=== PATIENT | female | born 1940 | race Caucasian/White ===

== ENCOUNTER → 2017-02-16 | Outpatient (CLI) | payer MEDICARE, OTHER ==
[2015-09-09 17:02] VITALS: BP 129/59
--- NOTE | 2017-02-16 11:34 | RAD ---
PROCEDURE MRI lumbar spine without contrast. HISTORY Low back pain with left leg radiculopathy, history of discectomy TECHNIQUE Multiplanar, multi sequential non contrast MR imaging was performed of the lumbar spine. COMPARISON None FINDINGS Lumbar vertebral body stature is maintained. There is grade 1 anterior spondylolisthesis at L3-4 and L4-5. Conus terminates at L1. There is fairly advanced degenerative disc disease at L3-4, to a lesser degree at L2-3 and minimally at L4-5. There are small hemangiomas of the L1, L3, and L5 vertebral bodies. There is mild levoscoliosis centered upon the superior lumbar spine. T12-L1: There is a large extradural focus of signal abnormality extending above the intervertebral disc space greatest centrally most compatible with a large extrusion on the order of 19 millimeters cc by 7 millimeters AP x 10 millimeters transverse. There is indentation upon the ventral thecal sac, overall mild spinal stenosis. Neural foramina are adequate. There is mild to moderate buckling of the ligamentum flavum. L1-2: There is mild to moderate buckling of the ligamentum flavum. There is mild facet degenerative change. Spinal canal is overall adequate. Left neural foramen is adequate, minimal narrowing of the right neural foramen. L2-3: There is moderate to severe buckling of the ligamentum flavum and mild to moderate facet degenerative change. There is minimal disc osteophyte complex. There is minimal narrowing of the right neural foramen, ixxw-mr-eabgeaid narrowing on the left. There is mild narrowing of the far lateral recesses bilaterally. L3-4: There is severe facet hypertrophic change and buckling of the ligamentum flavum. There is partial uncovering of the posterior aspect of the disc due to spondylolisthesis. Combination of findings results in severe spinal stenosis, limited preserved central subarachnoid space. There is lateral recess stenosis bilaterally. There is mild to moderate right and severe left neural foramina compromise. L4-5: There is moderate to severe facet degenerative change and mild buckling of the ligamentum flavum. Spinal canal is adequate. There is minimal posterior narrowing of the left neural foramen, right neural foramen adequate. L5-S1: Spinal canal and neural foramina are adequate. IMPRESSION 1. There is severe spinal stenosis L3-4. There is mild lateral recess stenosis bilaterally at L2-3. There is mild spinal stenosis at and above the T12-L1 intervertebral disc space level by large extrusion. 2. There is grade 1 anterior spondylolisthesis at L3-4 and L4-5. 3. There is severe narrowing of the left L3-4 neural foramen, other mild to moderate narrowing on the left at L2-3 and on the right at L3-4. Electronically signed by: Edilberto Holman MD (Feb 16, 2017 11:33:38)
== END | disposition home or self-care (01) ==
LOC: MRI 09:46
PROVIDERS: ATTEND Orthopaedic Surgery Sports Medicine
DX: M51.36 Other intervertebral disc degeneration, lumbar region (principal); M48.06 Spinal stenosis, lumbar region; M43.16 Spondylolisthesis, lumbar region
CPT/HCPCS: 72148

== ENCOUNTER → 2018-05-03 | Outpatient (CLI) | payer OTHER | END | disposition home or self-care (01) | LOC: ECHO 10:45 | DX: I08.2 Rheumatic disorders of both aortic and tricuspid valves (principal) | CPT/HCPCS: 93306 ==

== ENCOUNTER → 2019-03-14 | Outpatient (CLI) | payer OTHER ==
[2015-09-09 17:02] VITALS: BP 129/59
[~2019-03-14] MED LIST: REGADENOSON 0.4 MG/5 ML DISP.SYRIN. IV ONE
--- NOTE | 2019-03-14 12:24 | RAD ---
MR#: [id number] Date of Study: 03/14/2019 Ordering Physician: AKOSUA ALEXIS, Referring Physician: NATE BEAR Tech: LIZ Bolivar, ARRT (R) (N) APPROVED REPORT Test Type: Pharmacological Stress Nurse/Tech: Darin SWANN Test Indications: chest pain Cardiac History: Murmur, HTN, See EMR Medications: See EMR Medical History: CVA, See EMR Resting ECG: SR Resting Heart Rate: 75 bpm Resting Blood Pressure: 131/56mmHg Pretest Chest Pain: No chest pain Nurse/Tech Notes Lungs CTA, Murmur auscultated with heart tones. Consent: The procedure was explained to the patient in lay terms. Informed consent was witnessed. Fran eout was entered into [employer]. History and Stress Test performed by RT Ajay (R) (N) Pharm. Details Pharmacologic stress testing was performed using 0.4mg per 5ml of regadenoson given intravenously ove r 7-10 seconds. Stress Symptoms No chest pain or symptoms. POST EXERCISE Reason for Termination: Infusion complete Max HR: 89 bpm Max Blood Pressure: 152/53mmHg Chest Pain: No. Arrhythmia: No. Pt had a few PVCs during stress test. ST Change: No. INTERPRETATION Stress EKG Conclusion: The resting EKG shows a sinus rhythm with nonspecific ST-T wave changes. The stress EKG showed no significant changes from baseline. No EKG evidence of stress-induced ischemia. Imaging Protocol IMAGE PROTOCOL: Rest Tc-99m/stress Tc-99m 1 day Rest: Stress: Viability: Radiopharm.Tc99m HmmkwlqncWf86u Sestamibi Mjkd88hWa 33mCi Img Date 03/14/2019 03/14/2019 Inj-Img Ivlt21yoe. 45min. Rest Admin Site:IV - Left WristAdministrator:CAROLYN Saravia Stress Admin Site: IV - Left WristAdministrator: RT Alexandre (R)(N) STRESS DATA End Diast. Vol.52.0mlLVEDV index BSA30.0ml End Syst. Vol.7.0mlLVESV index BSA4.0ml Myocardial Mass96.0gEject. Kyhjjvwc47.0% Stress Scores Regional WT0.00Summed WT0.00 Regional WM0.00Summed WM0.00 LV Perfusion The stress scans showed no significant defects. The rest scans showed no significant defects. Nuclear imaging shows no reversible ischemia or infarct. Wall Motion Normal left ventricular systolic function with no regional wall motion abnormalities and an ejection fraction of greater than 70%. LV Perf. Quant 17 Seg. SSS0.00 17 Seg. SRS0.00 17 Seg. SDS0.00 Stress Defect Extent (% LAD)0.00Rest Defect Extent (% LAD)0.00Rev. Defect Extent (% LAD)0.00 Stress Defect Extent (% LCX) 0.00Rest Defect Extent (% LCX)0.00Rev. Defect Extent (% LCX)0.00 Stress Defect Extent (% RCA)0.00Rest Defect Extent (% RCA)0.00Rev. Defect Extent (% RCA)0.00 Stress Defect Extent (% MAGDA)0.00Rest Defect Extent (% MAGDA)0.00Rev. Defect Extent (% MAGDA)0.00 Conclusion 1. No EKG evidence of stress-induced ischemia. 2. Nuclear imaging shows no reversible ischemia or infarct. 3. Normal left ventricular systolic function with ejection fraction of greater than 70%. 4. Low risk Lexiscan nuclear stress test. Signed by : Akosua Alexis MD Electronically Approved : 03/14/2019 12:23:53
--- NOTE | 2019-03-14 12:29 | CARD ---
MR#: [id number] Date of Study: 03/14/2019 Ordering Physician: AKOSUA ALEXIS, Referring Physician: AKOSUA ALEXIS, Tech: Savi Knox APPROVED REPORT EXAM: Two-dimensional and M-mode echocardiogram with Doppler and color Doppler. Other Information Quality : GoodHR: 73bpm INDICATION Dyspnea Murmur RISK FACTORS Hypertension Hyperlipidemia 2D DIMENSIONS RVDd3.6 (2.9-3.5cm)Left Atrium(2D)3.3 (1.6-4.0cm) IVSd1.2 (0.7-1.1cm)Aortic Root(2D)3.1 (2.0-3.7cm) LVDd4.5 (3.9-5.9cm)LVOT Diameter2.1 (1.8-2.4cm) PWd1.1 (0.7-1.1cm)LVDs3.3 (2.5-4.0cm) FS (%) 26.8 %SV49.5 ml Aortic Valve AoV Peak Zurdo.264.7cm/sAoV VTI62.3cm AO Peak GR.28.0mmHgLVOT Peak Zurdo.123.4cm/s LVOT VTI 32.85cmAO Mean GR.15mmHg AQUILES (VMAX)1.24dz6USW (VTI)1.79cm2 AI P 1/2 Mkdv814ke Mitral Valve MV E Qcrowold448.4cm/sMV DECEL NODI734cz MV A Ihbxorjw880.4cm/sMV RTX00bn E/A Ratio1.0MVA (PHT)3.09cm2 TDI E/Lateral E'16.5E/Medial E'11.8 Pulmonary Valve PV Peak Xgrwdqzm91.8cm/sPV Peak Grad.4mmHg Tricuspid Valve TR P. Cacdbmnm838bt/sRAP ZDPUFSSG4nyBm TR Peak Gr.52flTtPETI78baOv Pulmonary Vein S1 Jibtbxfa19.3cm/sD2 Suirnjju80.9cm/s PVa mwlqmgzj938qplt LEFT VENTRICLE The left ventricle is normal size. There is mild concentric left ventricular hypertrophy. The left ve ntricular systolic function is normal and the ejection fraction is within normal range. The Ejection Fraction is 50-55%. There is normal LV segmental wall motion. Transmitral Doppler flow pattern is Gra de II-pseudonormal filling dynamics. RIGHT VENTRICLE The right ventricle is normal size. There is normal right ventricular wall thickness. The right ventr icular systolic function is normal. ATRIA The left atrium size is normal. The right atrium size is normal. The interatrial septum is intact wit h no evidence for an atrial septal defect or patent foramen ovale as noted on 2-D or Doppler imaging. AORTIC VALVE The aortic valve is moderately calcified. Doppler and Color Flow revealed mild aortic regurgitation. Mild to moderate aortic valve stenosis. Aortic valve with a maximum pressure gradient of 28 mmHg and mean pressure gradient of 16 mmHg. MITRAL VALVE The mitral valve is normal in structure and function. Mitral annular calcification is moderate. There is no evidence of mitral valve prolapse. There is no mitral valve stenosis. Doppler and Color-flow r evealed mild mitral regurgitation. TRICUSPID VALVE The tricuspid valve is normal in structure and function. Doppler and Color Flow revealed trace to mil d tricuspid regurgitation with an estimated PAP of 34 mmHg. There is no tricuspid valve stenosis. PULMONIC VALVE The pulmonic valve is not well visualized. Doppler and Color Flow revealed no pulmonic valvular regur gitation. GREAT VESSELS The aortic root is normal in size. The IVC is dilated and collapses >50% with inspiration. PERICARDIAL EFFUSION There is no evidence of significant pericardial effusion. Critical Notification Critical Value: No <Conclusion> The left ventricle is normal size. The left ventricular systolic function is normal and the ejection fraction is within normal range. The Ejection Fraction is 50-55%. There is mild concentric left ventricular hypertrophy. Mild to moderate aortic valve stenosis. Aortic valve with a maximum pressure gradient of 28 mmHg and mean pressure gradient of 16 mmHg. Doppler and Color Flow revealed mild aortic regurgitation. Doppler and Color-flow revealed mild mitral regurgitation. Doppler and Color Flow revealed trace to mild tricuspid regurgitation with an estimated PAP of 34 mmH g. Signed by : Akosua Alexis MD Electronically Approved : 03/14/2019 12:28:46
== END | disposition home or self-care (01) ==
LOC: NM 08:31
PROVIDERS: ATTEND Internal Medicine Cardiovascular Disease
DX: I08.3 Combined rheumatic disorders of mitral, aortic and tricuspid valves (principal); I11.9 Hypertensive heart disease without heart failure; E78.5 Hyperlipidemia, unspecified
CPT/HCPCS: 78452; 93017; 93306; A9500; J2785

== ENCOUNTER 2020-05-31 16:36 | Inpatient (IN) | payer MEDICARE, OTHER ==
[~2020-05-31] VITALS: Ht 160 cm; Wt 67.8 kg
--- NOTE | 2020-05-31 17:05 | PHYS DOC ---
Past Medical History Past Medical History: CVA, Hypertension Past Surgical History: Hip Replacement, Hysterectomy, Lumbar Laminectomy Smoking Status: Never Smoker Alcohol Use: None Drug Use: None General Adult EDM: Chief Complaint: ALTERED MENTAL STATUS HPI: HPI: Patient is a 79 year old female who presents with daughter brings her in today because she states over the last 2 months she has noticed a decline in her mother's memory. She states she repeats things and will call and then call again not remembering that she just called and talk to them. She states that her short-term memory has declined. She states that her mother can tell you her life story but the short-term memory is not good. Patient states that approximately 2 months ago that her head felt "very funny" suddenly. She states she does not know how to explain it but just felt " funny". She states after that that is when her family started saying that her memory declining. The daughter states that also she will have a emotional outburst. She states that today her mother stated that she was going to go to the store and buy some protein bars to eat. She states that almost immediately after she hung up the phone her mother called back and was in tears stating " it is too hot", "I am not going". She states the other day she could not get the TV remote to work and her mother called her crying again. She states in the last 2 weeks she is just gotten away worse than she has been over the last 2 months and she does not understand why. The patient states that she thinks "it is just old age and she does not see anything wrong with the way she is acting." Patient denies abdominal pain, nausea, vomiting, diarrhea, dizziness, headache, vision changes, numbness or tingling, chest pain, shortness of breath, focal weakness, dysuria, fever, cough. Patient has a history of a CVA with no deficits and a hysterectomy and hypertension. Review of Systems: Review of Systems: Constitutional: Denies fever or chills. [] Eyes: Denies change in visual acuity. [] HENT: Denies nasal congestion or sore throat. [] Respiratory: Denies cough or shortness of breath. [] Cardiovascular: Denies chest pain or edema. [] GI: Denies abdominal pain, nausea, vomiting, bloody stools or diarrhea. [] : Denies dysuria. [] Musculoskeletal: Denies back pain or joint pain. [] Integument: Denies rash. [] Neurologic: Forgetfulness. Denies headache, focal weakness or sensory changes. [] Endocrine: Denies polyuria or polydipsia. [] Lymphatic: Denies swollen glands. [] Psychiatric: Denies depression or anxiety. [] Heart Score: Risk Factors: Risk Factors: DM, Current or recent (<one month) smoker, HTN, HLP, family history of CAD, obesity. Risk Scores: Score 0 - 3: 2.5% MACE over next 6 weeks - Discharge Home Score 4 - 6: 20.3% MACE over next 6 weeks - Admit for Clinical Observation Score 7 - 10: 72.7% MACE over next 6 weeks - Early Invasive Strategies Allergies: Allergies: Allergies Coded Allergies Type Severity Reaction Last Updated Verified No Known Drug Allergies 09/09/15 No Physical Exam: PE: Constitutional: Well developed, well nourished, no acute distress, non-toxic appearance. [] HENT: Normocephalic, atraumatic, bilateral external ears normal, oropharynx moist, no oral exudates, nose normal. [] Eyes: PERRLA, EOMI, conjunctiva normal, no discharge. [] Neck: Normal range of motion, no tenderness, supple, no stridor. [] Cardiovascular:Heart rate regular rhythm, no murmur [] Lungs & Thorax: Bilateral breath sounds clear to auscultation [] Abdomen: Bowel sounds normal, soft, no tenderness, no masses, no pulsatile masses. [] Skin: Warm, dry, no erythema, no rash. [] Back: No tenderness, no CVA tenderness. [] Extremities: No tenderness, no cyanosis, no clubbing, ROM intact, bilateral lower 1+ edema. [] Neurologic: Alert and oriented X 3, normal motor function, normal sensory function, no focal deficits noted. [] Psychologic: Affect normal, judgement normal, mood normal. EKG: EK and read by Dr. Carias is sinus rhythm and no STEMI Radiology/Procedures: Radiology/Procedures: [] Impression: [facility] [address] [place] [address] IMAGING REPORT Signed PATIENT: EDGAR JAEGER EACCOUNT: [id number] : 1940 LOCATION: ER AGE: 79 SEX: F EXAM STATUS: PRE ER ORD. PHYSICIAN: GABINO MANRIQUE APRN REASON: ams PROCEDURE: CT HEAD WO CONTRAST Exam: CT head INDICATION: Altered mental status TECHNIQUE: Sequential axial images through the head were obtained without the administration of IV contrast. Comparisons: None FINDINGS: No focal parenchymal lesion or hemorrhage is identified. There is no midline shift or sulcal effacement. Chronic appearing infarct at the left medial cerebellum. Patchy hypodensity in the periventricular white matter. No acute vascular territory infarction is identified. Chaparro-white distinction is preserved. The ventricular system is within normal limits without compression hydrocephalus. The basal cisterns are well maintained. The visualized portions of the paranasal sinuses and mastoid air cells are well-pneumatized. No acute fractures. IMPRESSION: Chronic appearing infarct in the left medial cerebellum patchy hypodensity in the periventricular white matter, technically age indeterminate without prior imaging. If there is persistent concerns for acute ischemia MRI would better evaluate. Exposure: One or more of the following in the visualized dose reduction techniques were utilized for this examination: 1. Automated exposure control 2. Adjustment of the MA and/or KV according to patient size Use of iterative of reconstructive technique Electronically signed by: Lc Villar MD (05/31/2020 5:52 PM) [id number] DICTATED and SIGNED BY: LC VILLAR MD DATE: 05/31/20 1752 [facility] [address] [place], [place] [id number] IMAGING REPORT Signed PATIENT: EDGAR JAEGER EACCOUNT: [id number] : 1940 LOCATION: ER AGE: 79 SEX: F EXAM STATUS: PRE ER ORD. PHYSICIAN: GABINO MANRIQUE APRN REASON: ams PROCEDURE: PORTABLE CHEST 1V Examination: PORTABLE CHEST 1V History: Reason: ams / Comparison/Correlation: None Findings: Portable upright frontal view of the chest was obtained. Calcified granulomas are present. No infiltrate or pleural effusion. Heart size and pulmonary vasculature are normal. No pneumothorax. Impression: No active Electronically signed by: Noble Freeman MD (05/31/2020 5:47 PM) [id number] DICTATED and SIGNED BY: NOBLE FREEMAN MD DATE: 05/31/201746 Course & Med Decision Making: Course & Med Decision Making Pertinent Labs and Imaging studies reviewed. (See chart for details) Alert and oriented x4. Speaks in full clear sentences. Ambulatory with a steady gait. NIH negative. See HPI. PERRLA. Follows all commands appropriately. Bilateral lower extremity 1+ edema. Abdomen soft and nontender. Daughter states that the patient was treated for UTI over a week ago but she is unsure if the patient actually took her antibiotic. Patient does have a UTI today. I prescribed Rocephin IV. Patient is scheduled for an MRI of the brain on this coming Tuesday with her primary care provider. Patient states she went to bring her in today due to her acting more disoriented. Patient admitted to Dr Long. I will consult Neurology. [] Roberto Disclaimer: Roberto Disclaimer: This electronic medical record was generated, in whole or in part, using a voice recognition dictation system. NIHSS Stroke Scale NIH Stroke Scale: NIH Stroke Scale Response (Comments) Value Level of Consciousness: 0 Alert/Responsive 0 LOC Questions: 0 Answers both correctly 0 LOC Commands: 0 Performs both tasks 0 Best Gaze: 0 Normal 0 Visual: 0 No visual loss 0 Facial Palsy: 0 Normal, symmetrical 0 Motor - Left Arm 0 No drift 0 Motor - Right Arm 0 No drift 0 Motor - Left Leg 0 No drift 0 Motor: Right Leg 0 No drift 0 Limb Ataxia: 0 Absent 0 Sensory: 0 No loss 0 Best Language: 0 Normal 0 Dysathria: 0 Normal 0 Extinction and Inattention: 0 Normal 0 Total 0 Departure Departure Impression: Primary Impression: AMS (altered mental status) Qualified Codes: R41.82 - Altered mental status, unspecified Additional Impression: UTI (urinary tract infection) Qualified Codes: N39.0 - Urinary tract infection, site not specified Disposition: ADMITTED INPATIENT Admitting Physician: MARIBELL Condition: STABLE Referrals: KRISTI TODD MD (PCP) Justicifation of Admission Dx: Justifications for Admission: Justification of Admission Dx: Yes Comments: GABINO LAIRD APRN May 31, 2020 17:05
[2020-05-31 17:21] LABS: BILIRUBIN,URINE NEGATIVE (NEG); CLARITY,URINE CLEAR; COLOR,URINE YELLOW; NITRITE,URINE NEGATIVE (NEG); PH,URINE 5.5 (<5.0-8.0); PROTEIN,URINE NEGATIVE (NEG-TRACE)
[2020-05-31 17:28] LABS: BACTERIA,URINE 0 /HPF (0-FEW); HYALINE CASTS, URINE MANY /HPF; RBC,URINE 0 /HPF (0-2); SQUAMOUS EPITHELIAL CELL,UR MOD /LPF; WBC,URINE >40 /HPF (0-4)
[2020-05-31 17:45] LABS: BASO # 0.1 x10^3/uL (0.0-0.2); BASO % 1 % (0-3); EOS # 0.1 x10^3/uL (0.0-0.7); EOS % 1 % (0-3); HEMATOCRIT 31.5 % (36.0-47.0); HEMOGLOBIN 11.1 g/dL (12.0-15.5); LYMPH # 1.8 x10^3/uL (1.0-4.8); LYMPH % 25 % (24-48); MEAN CORPUSCULAR HEMOGLOBIN 31 pg (25-35); MEAN CORPUSCULAR HGB CONC 35 g/dL (31-37); MEAN CORPUSCULAR VOLUME 88 fL (79-100); MONO # 0.6 x10^3/uL (0.0-1.1); MONO % 9 % (0-9); NEUT # 4.7 x10^3/uL (1.8-7.7); NEUT % 65 % (31-73); PLATELET COUNT 388 x10^3/uL (140-400); RED BLOOD COUNT 3.57 x10^6/uL (3.50-5.40); RED CELL DISTRIBUTION WIDTH 12.8 % (11.5-14.5); WHITE BLOOD COUNT 7.2 x10^3/uL (4.0-11.0)
--- NOTE | 2020-05-31 17:50 | RAD ---
Examination: PORTABLE CHEST 1V History: Reason: ams / Comparison/Correlation: None Findings: Portable upright frontal view of the chest was obtained. Calcified granulomas are present. No infiltrate or pleural effusion. Heart size and pulmonary vasculature are normal. No pneumothorax. Impression: No active Electronically signed by: Noble Mckoy MD (05/31/2020 5:47 PM) [id number]
[2020-05-31 17:51] LABS: PROTHROMBIN TIME PATIENT 13.6 SEC (11.7-14.0)
[2020-05-31 17:53] LABS: CALCIUM 9.2 mg/dL (8.5-10.1); CREATININE 1.1 mg/dL (0.6-1.0); GFR 47.8; POTASSIUM 3.8 mmol/L (3.5-5.1)
--- NOTE | 2020-05-31 17:54 | RAD ---
Exam: CT head INDICATION: Altered mental status TECHNIQUE: Sequential axial images through the head were obtained without the administration of IV contrast. Comparisons: None FINDINGS: No focal parenchymal lesion or hemorrhage is identified. There is no midline shift or sulcal effacement. Chronic appearing infarct at the left medial cerebellum. Patchy hypodensity in the periventricular white matter. No acute vascular territory infarction is identified. Chaparro-white distinction is preserved. The ventricular system is within normal limits without compression hydrocephalus. The basal cisterns are well maintained. The visualized portions of the paranasal sinuses and mastoid air cells are well-pneumatized. No acute fractures. IMPRESSION: Chronic appearing infarct in the left medial cerebellum patchy hypodensity in the periventricular white matter, technically age indeterminate without prior imaging. If there is persistent concerns for acute ischemia MRI would better evaluate. Exposure: One or more of the following in the visualized dose reduction techniques were utilized for this examination: 1. Automated exposure control 2. Adjustment of the MA and/or KV according to patient size Use of iterative of reconstructive technique Electronically signed by: Lc Lomeli MD (05/31/2020 5:52 PM) [id number]
[2020-05-31 17:58] LABS: ALBUMIN 3.4 g/dL (3.4-5.0); ALBUMIN/GLOBULIN RATIO 0.8 (1.0-1.7); TOTAL BILIRUBIN 0.4 mg/dL (0.2-1.0); TOTAL PROTEIN 7.7 g/dL (6.4-8.2)
[2020-05-31] MEDS ORDERED: cefTRIAXone IV Push 1 GM VIAL. IVP ONE (18:00)
[2020-05-31] MEDS ORDERED: ONDANSETRON PF 4 MG/2 ML VIAL. IV PRN (19:30)
[2020-05-31 22:00] VITALS: BP 132/47
[2020-05-31 23:00] VITALS: BP 110/48
[2020-06-01 03:00] VITALS: BP 116/50
--- NOTE | 2020-06-01 06:42 | NUR ---
Consult to dr salazar (neurology) [place]
[2020-06-01 07:00] VITALS: BP 132/57
[2020-06-01] MEDS: cefTRIAXone IV Push 1 GM VIAL. IVP SCH (10:07)
[2020-06-01 11:00] VITALS: BP 119/50
--- NOTE | 2020-06-01 11:22 | PDOC1 ---
History and Physical Date of Admission Date of Admission DATE: 06/01/20 TIME: 11:13 Identification/Chief Complaint Chief Complaint AMS Problems: (1) UTI (urinary tract infection) (2) AMS (altered mental status) Source Source: Chart review, Patient History of Present Illness History of Present Illness 79 year old CF hx of CVA, HTN who presents to the hospital after her daughter reports decline in memory over past two months. patient's daughter reports short term memory has declined and is also having emotional outbursts. reports worsening in behavior and memory over past two weeks. when I asked patient if she knows why she is here she states she is fine and wants to go home. denies abdominal pain, nausea, vomiting, diarrhea, dizziness, headache, vision changes, numbness or tingling, chest pain, shortness of breath, focal weakness, dysuria, fever, cough. she is scheduled to have an MRI this week per per PCP patient admitted for AMS and UTI given concerning UA. Past Medical History Past Medical History CVA, htn Past Surgical History Past Surgical History hysterectomy Family History Family History reviewed and denies Social History Smoke: No ALCOHOL: none Drugs: None Current Problem List Problem List Problems Medical Problems: (1) AMS (altered mental status) Status: Acute (2) UTI (urinary tract infection) Status: Acute Current Medications Current Medications Current Medications Ceftriaxone Sodium (Rocephin) 1 gm 1X ONCE IVP Last administered on 05/31/20at 18:07; Start 05/31/20 at 18:00; Stop 05/31/20 at 18:01; Status DC Ondansetron HCl (Zofran) 4 mg PRN Q8HRS PRN IV NAUSEA/VOMITING; Start 05/31/20 at 19:30; Stop 06/01/20 at 19:29 Ceftriaxone Sodium (Rocephin) 1 gm Q24H IVP Last administered on 06/01/20at 10:07; Start 06/01/20 at 08:00 Allergies Allergies: Coded Allergies: No Known Drug Allergies (Unverified , 09/09/15) ROS Review of System CONSTITUTIONAL: No fever or chills EYES: No recent changes SKIN: No rash or itching CARDIOVASCULAR: No chest pain, syncope, palpitations, or edema RESPIRATORY: No SOB or cough GASTROINTESTINAL: No nausea, vomiting or abdominal pain NEUROLOGICAL: No headaches or weakness ENDOCRINE: No cold or heat intolerance GENITOURINARY: No urgency or frequency of urination MUSCULOSKELETAL: No back pain or joint pain LYMPHATICS: No enlarged lymph nodes PSYCHIATRIC: No anxiety or depression Physical Exam Physical Exam GENERAL: No apparent distress. Alert and oriented. HEENT: Head normocephalic, atraumatic. NECK: Supple LUNGS: Clear to auscultation. HEART: RRR, S1, S2 present, pulses intact ABDOMEN: Soft, positive bowel sounds. EXTREMITIES: No cyanosis or edema. NEUROLOGIC: Normal speech, normal tone PSYCHIATRIC: Normal affect, normal mood. SKIN: No ulceration. Vitals Vitals Vital Signs Date Time Temp Pulse Resp B/P (MAP) Pulse Ox O2 Delivery O2 Flow Rate FiO2 06/01/20 07:00 98.4 67 16 132/57 (82) 97 Room Air 98.4 Labs Labs Laboratory Tests Test 05/31/20 17:07 05/31/20 17:36 Urine Collection Type Unknown Urine Color Yellow Urine Clarity Clear Urine pH 5.5 (<5.0-8.0) Urine Specific [employer] 1.020 (1.000-1.030) Urine Protein Negative mg/dL (NEG-TRACE) Urine Glucose (UA) Negative mg/dL (NEG) Urine Ketones (Stick) Negative mg/dL (NEG) Urine Blood Negative (NEG) Urine Nitrite Negative (NEG) Urine Bilirubin Negative (NEG) Urine Urobilinogen Dipstick 1.0 mg/dL (0.2 mg/dL) Urine Leukocyte Esterase Moderate (NEG) Urine RBC 0 /HPF (0-2) Urine WBC >40 /HPF (0-4) Urine Squamous Epithelial Cells Mod /LPF Urine Transitional Epithelial Cells Few /LPF Urine Renal Epithelial Cells Few /LPF Urine Bacteria 0 /HPF (0-FEW) Urine Hyaline Casts Many /HPF Urine Mucus Marked /LPF White Blood Count 7.2 x10^3/uL (4.0-11.0) Red Blood Count 3.57 x10^6/uL (3.50-5.40) Hemoglobin 11.1 g/dL (12.0-15.5) Hematocrit 31.5 % (36.0-47.0) Mean Corpuscular Volume 88 fL (79-100) Mean Corpuscular Hemoglobin 31 pg (25-35) Mean Corpuscular Hemoglobin Concent 35 g/dL (31-37) Red Cell Distribution Width 12.8 % (11.5-14.5) Platelet Count 388 x10^3/uL (140-400) Neutrophils (%) (Auto) 65 % (31-73) Lymphocytes (%) (Auto) 25 % (24-48) Monocytes (%) (Auto) 9 % (0-9) Eosinophils (%) (Auto) 1 % (0-3) Basophils (%) (Auto) 1 % (0-3) Neutrophils # (Auto) 4.7 x10^3/uL (1.8-7.7) Lymphocytes # (Auto) 1.8 x10^3/uL (1.0-4.8) Monocytes # (Auto) 0.6 x10^3/uL (0.0-1.1) Eosinophils # (Auto) 0.1 x10^3/uL (0.0-0.7) Basophils # (Auto) 0.1 x10^3/uL (0.0-0.2) Prothrombin Time 13.6 SEC (11.7-14.0) Prothromb Time International Ratio 1.1 (0.8-1.1) Sodium Level 135 mmol/L (136-145) Potassium Level 3.8 mmol/L (3.5-5.1) Chloride Level 97 mmol/L (98-107) Carbon Dioxide Level 29 mmol/L (21-32) Anion Gap 9 (6-14) Blood Urea Nitrogen 28 mg/dL (7-20) Creatinine 1.1 mg/dL (0.6-1.0) Estimated GFR (Cockcroft-Gault) 47.8 BUN/Creatinine Ratio 25 (6-20) Glucose Level 94 mg/dL (70-99) Calcium Level 9.2 mg/dL (8.5-10.1) Total Bilirubin 0.4 mg/dL (0.2-1.0) Aspartate Amino Transf (AST/SGOT) 18 U/L (15-37) Alanine Aminotransferase (ALT/SGPT) 21 U/L (14-59) Alkaline Phosphatase 109 U/L (46-116) Troponin I Quantitative < 0.017 ng/mL (0.000-0.055) BY-Ycr-A-Type Natriuretic Peptide 272 pg/mL (0-449) Total Protein 7.7 g/dL (6.4-8.2) Albumin 3.4 g/dL (3.4-5.0) Albumin/Globulin Ratio 0.8 (1.0-1.7) Laboratory Tests Test 05/31/20 17:07 05/31/20 17:36 Urine Collection Type Unknown Urine Color Yellow Urine Clarity Clear Urine pH 5.5 (<5.0-8.0) Urine Specific [employer] 1.020 (1.000-1.030) Urine Protein Negative mg/dL (NEG-TRACE) Urine Glucose (UA) Negative mg/dL (NEG) Urine Ketones (Stick) Negative mg/dL (NEG) Urine Blood Negative (NEG) Urine Nitrite Negative (NEG) Urine Bilirubin Negative (NEG) Urine Urobilinogen Dipstick 1.0 mg/dL (0.2 mg/dL) Urine Leukocyte Esterase Moderate (NEG) Urine RBC 0 /HPF (0-2) Urine WBC >40 /HPF (0-4) Urine Squamous Epithelial Cells Mod /LPF Urine Transitional Epithelial Cells Few /LPF Urine Renal Epithelial Cells Few /LPF Urine Bacteria 0 /HPF (0-FEW) Urine Hyaline Casts Many /HPF Urine Mucus Marked /LPF White Blood Count 7.2 x10^3/uL (4.0-11.0) Red Blood Count 3.57 x10^6/uL (3.50-5.40) Hemoglobin 11.1 g/dL (12.0-15.5) Hematocrit 31.5 % (36.0-47.0) Mean Corpuscular Volume 88 fL (79-100) Mean Corpuscular Hemoglobin 31 pg (25-35) Mean Corpuscular Hemoglobin Concent 35 g/dL (31-37) Red Cell Distribution Width 12.8 % (11.5-14.5) Platelet Count 388 x10^3/uL (140-400) Neutrophils (%) (Auto) 65 % (31-73) Lymphocytes (%) (Auto) 25 % (24-48) Monocytes (%) (Auto) 9 % (0-9) Eosinophils (%) (Auto) 1 % (0-3) Basophils (%) (Auto) 1 % (0-3) Neutrophils # (Auto) 4.7 x10^3/uL (1.8-7.7) Lymphocytes # (Auto) 1.8 x10^3/uL (1.0-4.8) Monocytes # (Auto) 0.6 x10^3/uL (0.0-1.1) Eosinophils # (Auto) 0.1 x10^3/uL (0.0-0.7) Basophils # (Auto) 0.1 x10^3/uL (0.0-0.2) Prothrombin Time 13.6 SEC (11.7-14.0) Prothromb Time International Ratio 1.1 (0.8-1.1) Sodium Level 135 mmol/L (136-145) Potassium Level 3.8 mmol/L (3.5-5.1) Chloride Level 97 mmol/L (98-107) Carbon Dioxide Level 29 mmol/L (21-32) Anion Gap 9 (6-14) Blood Urea Nitrogen 28 mg/dL (7-20) Creatinine 1.1 mg/dL (0.6-1.0) Estimated GFR (Cockcroft-Gault) 47.8 BUN/Creatinine Ratio 25 (6-20) Glucose Level 94 mg/dL (70-99) Calcium Level 9.2 mg/dL (8.5-10.1) Total Bilirubin 0.4 mg/dL (0.2-1.0) Aspartate Amino Transf (AST/SGOT) 18 U/L (15-37) Alanine Aminotransferase (ALT/SGPT) 21 U/L (14-59) Alkaline Phosphatase 109 U/L (46-116) Troponin I Quantitative < 0.017 ng/mL (0.000-0.055) WS-Svt-N-Type Natriuretic Peptide 272 pg/mL (0-449) Total Protein 7.7 g/dL (6.4-8.2) Albumin 3.4 g/dL (3.4-5.0) Albumin/Globulin Ratio 0.8 (1.0-1.7) VTE Prophylaxis Ordered VTE Prophylaxis Devices: Yes VTE Pharmacological Prophylaxi: Yes Assessment/Plan Assessment/Plan assessment Acute Encephalopathy concerning for Dementia Probable UTI hx of CVA hx of HTN plan admit to medical floor start Rocephin urine cultures ordered Neuro consulted, MRI pending per neuro dvt ppx full code Justicifation of Admission Dx: Justifications for Admission: Justification of Admission Dx: Yes Problem Qualifiers (1) UTI (urinary tract infection): Urinary tract infection type: site unspecified Hematuria presence: without hematuria Qualified Codes: N39.0 - Urinary tract infection, site not specified (2) AMS (altered mental status): Altered mental status type: unspecified Qualified Codes: R41.82 - Altered mental status, unspecified STONE SORTO MD Jun 01, 2020 11:22
[2020-06-01] MEDS ORDERED: DONE10TA7 PO (14:01)
[2020-06-01] MEDS ORDERED: LATA2.5D3 OU (14:01)
[2020-06-01] MEDS ORDERED: AMLO10TA8 PO (14:01)
[2020-06-01] MEDS ORDERED: IBUP-985 PO (14:01)
[2020-06-01] MEDS ORDERED: VALS1TAB PO (14:01)
[2020-06-01] MEDS ORDERED: ALEN35TA11 PO (14:01)
[2020-06-01 15:00] VITALS: BP 126/57
--- NOTE | 2020-06-01 15:13 | PDOC2 ---
CONSULT Date of Consult Date of Consult DATE: 06/01/20 TIME: 15:12 Reason for Consult Reason for Consult: AMS Identification/Chief Complaint Chief Complaint AMS History of Present Illness Reason for Visit: This patient is 79-year-old woman information obtained from patient, patient's family. Patient has history of CVA hypertension patient has complaint of memory problems. Patient has some worsening of memory problems over last few months. Patient presented with episode of confusion. Patient denies any complaint of headache nausea or vomiting chest pain shortness of breath. Patient denies any complaint of focal extremity weakness. Social History No ALCOHOL: none Drugs: None Current Problem List Problem List Problems Medical Problems: (1) AMS (altered mental status) Status: Acute (2) UTI (urinary tract infection) Status: Acute Current Medications Current Medications Current Medications Ceftriaxone Sodium (Rocephin) 1 gm 1X ONCE IVP Last administered on 05/31/20at 18:07; Start 05/31/20 at 18:00; Stop 05/31/20 at 18:01; Status DC Ondansetron HCl (Zofran) 4 mg PRN Q8HRS PRN IV NAUSEA/VOMITING; Start 05/31/20 at 19:30; Stop 06/01/20 at 19:29 Ceftriaxone Sodium (Rocephin) 1 gm Q24H IVP Last administered on 06/01/20at 10:07; Start 06/01/20 at 08:00 Lactobacillus Rhamnosus (Culturelle) 1 cap BID PO ; Start 06/01/20 at 21:00 Active Scripts Active Reported Valsartan-Hctz 320-12.5 Mg Tab (Valsartan/Hydrochlorothiazide) 1 Each Tablet 1 Tab PO DAILY Ibuprofen 600 Mg Tablet 600 Mg PO PRN TID PRN Alendronate Sodium 35 Mg Tablet 35 Mg PO WEEKLY Amlodipine Besylate 10 Mg Tablet 10 Mg PO DAILY Donepezil Hcl 10 Mg Tablet 10 Mg PO DAILY Latanoprost 2.5 Ml Drops 1 Drop OU HS Allergies Allergies: Coded Allergies: No Known Drug Allergies (Unverified , 09/09/15) Physical Exam Physical Exam General no acute distress. HEENT: Normocephalic and atraumatic. NECK: Supple without bruit Respiratory: Clear to auscultation bilaterally Heart: Regular rate and rhythm, S1S2 normal NEUROLOGIC: Mental status Alert oriented. Cranial nerve equally reactive pupils, and intact extraocular movements. No facial asymmetry. Palate elevates and tongue protrudes in midline. Reflexes are 1-2 with flexor plantar responses. Coordination no dysmetria Strength able to move all exts equally. Sensory exam is intact for light touch and pinprick. Gait in bed. A 10-point review of systems was obtained. Other than the history of present illness the remainder of the review of systems is negative. Vitals VITALS Vital Signs Date Time Temp Pulse Resp B/P (MAP) Pulse Ox O2 Delivery O2 Flow Rate FiO2 06/01/20 11:00 98.3 64 16 119/50 (73) 96 Room Air 98.3 Labs Labs Laboratory Tests Test 05/31/20 17:07 05/31/20 17:36 Urine Collection Type Unknown Urine Color Yellow Urine Clarity Clear Urine pH 5.5 (<5.0-8.0) Urine Specific [employer] 1.020 (1.000-1.030) Urine Protein Negative mg/dL (NEG-TRACE) Urine Glucose (UA) Negative mg/dL (NEG) Urine Ketones (Stick) Negative mg/dL (NEG) Urine Blood Negative (NEG) Urine Nitrite Negative (NEG) Urine Bilirubin Negative (NEG) Urine Urobilinogen Dipstick 1.0 mg/dL (0.2 mg/dL) Urine Leukocyte Esterase Moderate (NEG) Urine RBC 0 /HPF (0-2) Urine WBC >40 /HPF (0-4) Urine Squamous Epithelial Cells Mod /LPF Urine Transitional Epithelial Cells Few /LPF Urine Renal Epithelial Cells Few /LPF Urine Bacteria 0 /HPF (0-FEW) Urine Hyaline Casts Many /HPF Urine Mucus Marked /LPF White Blood Count 7.2 x10^3/uL (4.0-11.0) Red Blood Count 3.57 x10^6/uL (3.50-5.40) Hemoglobin 11.1 g/dL (12.0-15.5) Hematocrit 31.5 % (36.0-47.0) Mean Corpuscular Volume 88 fL (79-100) Mean Corpuscular Hemoglobin 31 pg (25-35) Mean Corpuscular Hemoglobin Concent 35 g/dL (31-37) Red Cell Distribution Width 12.8 % (11.5-14.5) Platelet Count 388 x10^3/uL (140-400) Neutrophils (%) (Auto) 65 % (31-73) Lymphocytes (%) (Auto) 25 % (24-48) Monocytes (%) (Auto) 9 % (0-9) Eosinophils (%) (Auto) 1 % (0-3) Basophils (%) (Auto) 1 % (0-3) Neutrophils # (Auto) 4.7 x10^3/uL (1.8-7.7) Lymphocytes # (Auto) 1.8 x10^3/uL (1.0-4.8) Monocytes # (Auto) 0.6 x10^3/uL (0.0-1.1) Eosinophils # (Auto) 0.1 x10^3/uL (0.0-0.7) Basophils # (Auto) 0.1 x10^3/uL (0.0-0.2) Prothrombin Time 13.6 SEC (11.7-14.0) Prothromb Time International Ratio 1.1 (0.8-1.1) Sodium Level 135 mmol/L (136-145) Potassium Level 3.8 mmol/L (3.5-5.1) Chloride Level 97 mmol/L (98-107) Carbon Dioxide Level 29 mmol/L (21-32) Anion Gap 9 (6-14) Blood Urea Nitrogen 28 mg/dL (7-20) Creatinine 1.1 mg/dL (0.6-1.0) Estimated GFR (Cockcroft-Gault) 47.8 BUN/Creatinine Ratio 25 (6-20) Glucose Level 94 mg/dL (70-99) Calcium Level 9.2 mg/dL (8.5-10.1) Total Bilirubin 0.4 mg/dL (0.2-1.0) Aspartate Amino Transf (AST/SGOT) 18 U/L (15-37) Alanine Aminotransferase (ALT/SGPT) 21 U/L (14-59) Alkaline Phosphatase 109 U/L (46-116) Troponin I Quantitative < 0.017 ng/mL (0.000-0.055) JW-Pch-V-Type Natriuretic Peptide 272 pg/mL (0-449) Total Protein 7.7 g/dL (6.4-8.2) Albumin 3.4 g/dL (3.4-5.0) Albumin/Globulin Ratio 0.8 (1.0-1.7) Laboratory Tests Test 7/18/20 17:07 05/31/20 17:36 Urine Collection Type Unknown Urine Color Yellow Urine Clarity Clear Urine pH 5.5 (<5.0-8.0) Urine Specific [employer] 1.020 (1.000-1.030) Urine Protein Negative mg/dL (NEG-TRACE) Urine Glucose (UA) Negative mg/dL (NEG) Urine Ketones (Stick) Negative mg/dL (NEG) Urine Blood Negative (NEG) Urine Nitrite Negative (NEG) Urine Bilirubin Negative (NEG) Urine Urobilinogen Dipstick 1.0 mg/dL (0.2 mg/dL) Urine Leukocyte Esterase Moderate (NEG) Urine RBC 0 /HPF (0-2) Urine WBC >40 /HPF (0-4) Urine Squamous Epithelial Cells Mod /LPF Urine Transitional Epithelial Cells Few /LPF Urine Renal Epithelial Cells Few /LPF Urine Bacteria 0 /HPF (0-FEW) Urine Hyaline Casts Many /HPF Urine Mucus Marked /LPF White Blood Count 7.2 x10^3/uL (4.0-11.0) Red Blood Count 3.57 x10^6/uL (3.50-5.40) Hemoglobin 11.1 g/dL (12.0-15.5) Hematocrit 31.5 % (36.0-47.0) Mean Corpuscular Volume 88 fL (79-100) Mean Corpuscular Hemoglobin 31 pg (25-35) Mean Corpuscular Hemoglobin Concent 35 g/dL (31-37) Red Cell Distribution Width 12.8 % (11.5-14.5) Platelet Count 388 x10^3/uL (140-400) Neutrophils (%) (Auto) 65 % (31-73) Lymphocytes (%) (Auto) 25 % (24-48) Monocytes (%) (Auto) 9 % (0-9) Eosinophils (%) (Auto) 1 % (0-3) Basophils (%) (Auto) 1 % (0-3) Neutrophils # (Auto) 4.7 x10^3/uL (1.8-7.7) Lymphocytes # (Auto) 1.8 x10^3/uL (1.0-4.8) Monocytes # (Auto) 0.6 x10^3/uL (0.0-1.1) Eosinophils # (Auto) 0.1 x10^3/uL (0.0-0.7) Basophils # (Auto) 0.1 x10^3/uL (0.0-0.2) Prothrombin Time 13.6 SEC (11.7-14.0) Prothromb Time International Ratio 1.1 (0.8-1.1) Sodium Level 135 mmol/L (136-145) Potassium Level 3.8 mmol/L (3.5-5.1) Chloride Level 97 mmol/L (98-107) Carbon Dioxide Level 29 mmol/L (21-32) Anion Gap 9 (6-14) Blood Urea Nitrogen 28 mg/dL (7-20) Creatinine 1.1 mg/dL (0.6-1.0) Estimated GFR (Cockcroft-Gault) 47.8 BUN/Creatinine Ratio 25 (6-20) Glucose Level 94 mg/dL (70-99) Calcium Level 9.2 mg/dL (8.5-10.1) Total Bilirubin 0.4 mg/dL (0.2-1.0) Aspartate Amino Transf (AST/SGOT) 18 U/L (15-37) Alanine Aminotransferase (ALT/SGPT) 21 U/L (14-59) Alkaline Phosphatase 109 U/L (46-116) Troponin I Quantitative < 0.017 ng/mL (0.000-0.055) RK-Xak-T-Type Natriuretic Peptide 272 pg/mL (0-449) Total Protein 7.7 g/dL (6.4-8.2) Albumin 3.4 g/dL (3.4-5.0) Albumin/Globulin Ratio 0.8 (1.0-1.7) Assessment/Plan Assessment/Plan This patient is 79-year-old woman information obtained from patient, patient's family. Patient has history of CVA hypertension patient has complaint of memory problems. Patient has some worsening of memory problems over last few months. Patient presented with episode of confusion. Patient denies any complaint of headache nausea or vomiting chest pain shortness of breath. Patient denies any complaint of focal extremity weakness. Patient with the encephalopathy patient has history of memory problems currently being treated for urinary tract infection on antibiotics. Further evaluation for dementia as outpatient hypertension continue treat and monitor CT brain did not show any evidence of acute intracranial etiology chronic appearing infarct in left medial cerebellar noted. Changes noted for atrophy, chronic small vessel ischemic disease will get MRI of brain to further evaluate. Continue aspirin for stroke prevention. Continue medical management. Further workup depending on initial testing. Plan discussed with patient, patient's family RACHELLE KENYON MD Jun 01, 2020 15:12
[2020-06-01] MEDS: ASPIRIN CHEWABLE 81 MG TABLET. PO SCH (16:13)
[2020-06-01 18:38] VITALS: BP 118/45
[2020-06-01] MEDS: LACTOBACILLUS RHAMNOSUS GG 1 CAPSULE. PO SCH (20:41)
[2020-06-01 22:39] VITALS: BP 119/50
[2020-06-02 03:00] VITALS: BP 133/73
[2020-06-02] MEDS ORDERED: ACETAMINOPHEN 325 MG TABLET. PO PRN (03:15)
[2020-06-02 03:42] LABS: BASO % 1 % (0-3); EOS # 0.1 x10^3/uL (0.0-0.7); EOS % 1 % (0-3); HEMATOCRIT 29.2 % (36.0-47.0); HEMOGLOBIN 10.2 g/dL (12.0-15.5); LYMPH # 2.1 x10^3/uL (1.0-4.8); LYMPH % 24 % (24-48); MEAN CORPUSCULAR HEMOGLOBIN 31 pg (25-35); MEAN CORPUSCULAR HGB CONC 35 g/dL (31-37); MEAN CORPUSCULAR VOLUME 88 fL (79-100); MONO # 0.8 x10^3/uL (0.0-1.1); MONO % 9 % (0-9); NEUT # 5.7 x10^3/uL (1.8-7.7); NEUT % 65 % (31-73); PLATELET COUNT 335 x10^3/uL (140-400); RED BLOOD COUNT 3.31 x10^6/uL (3.50-5.40); RED CELL DISTRIBUTION WIDTH 12.5 % (11.5-14.5); WHITE BLOOD COUNT 8.7 x10^3/uL (4.0-11.0)
[2020-06-02 04:41] LABS: CALCIUM 8.2 mg/dL (8.5-10.1); CREATININE 0.8 mg/dL (0.6-1.0); POTASSIUM 3.7 mmol/L (3.5-5.1)
[2020-06-02 07:00] VITALS: BP 107/43
[2020-06-02] MEDS: LACTOBACILLUS RHAMNOSUS GG 1 CAPSULE. PO SCH (08:38)
[2020-06-02] MEDS: cefTRIAXone IV Push 1 GM VIAL. IVP SCH (08:38)
[2020-06-02] MEDS: ASPIRIN CHEWABLE 81 MG TABLET. PO SCH (08:38)
[2020-06-02 10:55] VITALS: BP 145/55
--- NOTE | 2020-06-02 11:32 | RAD ---
BRAIN W/O CONTRAST Date: 06/02/2020 5:00 AM Indication: Altered Mental Staus Comparison: CT head 05/31/2020. Technique: Multiplanar multisequence MRI of the brain was performed without intravenous contrast using the standard protocol. Findings: No acute infarct. No acute hemorrhage. Punctate focus of gradient susceptibility artifact in the left parietotemporal region consistent with chronic microhemorrhage The ventricles are normal in size and configuration without hydrocephalus. Mild scattered FLAIR hyperintensities in the subcortical and periventricular deep white matter, a nonspecific finding, most commonly seen with chronic small vessel ischemic disease. Mild generalized cerebral volume loss. Large area of left cerebellar encephalomalacia. The scalp and calvarium are normal. The pituitary and sella are normal. No Chiari malformation. The visualized upper cervical spine is normal. The visualized orbits and globes are normal. Right maxillary and sphenoid sinus disease with mucoperiosteal reaction consistent with chronic sinusitis. The mastoid air cells are clear. Abnormal left vertebral artery flow-void. IMPRESSION: 1. No acute infarct, acute hemorrhage, mass, or hydrocephalus. 2. Large area of left cerebellar encephalomalacia. 3. Abnormal left vertebral artery flow-void, which could be due to slow flow or occlusion. 3. Mild chronic small vessel ischemic disease and generalized cerebral volume loss. Electronically signed by: Jason Templeton MD (06/02/2020 11:29 AM) [id number]
--- NOTE | 2020-06-02 11:34 | PDOC ---
PROGRESS NOTES Assessment Problems Medical Problems: (1) AMS (altered mental status) Status: Acute (2) UTI (urinary tract infection) Status: Acute Suspected dementia, inappropriate to make this diagnosis during the acute hospitalization as it may be a component of metabolic encephalopathy. Plan Await brain MRI Additional laboratory studies If discharged, follow-up in my clinic and 4-6 weeks for comprehensive mental status examination. Subjective No complaints Objective Vital Signs Date Time Temp Pulse Resp B/P (MAP) Pulse Ox O2 Delivery O2 Flow Rate FiO2 06/02/20 10:55 97.7 67 145/55 (85) 97 Room Air 97.7 06/01/20 22:39 16 Intake and Output 06/02/20 07:00 Intake Total 940 ml Output Total 1 ml Balance 939 ml Intake Oral 940 ml Output Urine Total 1 ml # Voids 7 PHYSICAL EXAM Alert. Oriented to person, wandering around the floor, does not know date, location, or reason for hospitalization. PERRL. EOMI. CN: no focal findings. Muscle tone: normal. Muscle strength: 5/5 DTR: 2+ Plantar reflex: flexor Gait: normal for age. Sensory exam: no abnormal findings. No cerebellar signs elicited. Review of Relevant I have reviewed the following items brendan (where applicable) has been applied. Labs Laboratory Tests Test 05/31/20 17:07 05/31/20 17:36 06/02/20 03:07 Urine Collection Type Unknown Urine Color Yellow Urine Clarity Clear Urine pH 5.5 (<5.0-8.0) Urine Specific [place] 1.020 (1.000-1.030) Urine Protein Negative mg/dL (NEG-TRACE) Urine Glucose (UA) Negative mg/dL (NEG) Urine Ketones (Stick) Negative mg/dL (NEG) Urine Blood Negative (NEG) Urine Nitrite Negative (NEG) Urine Bilirubin Negative (NEG) Urine Urobilinogen Dipstick 1.0 mg/dL (0.2 mg/dL) Urine Leukocyte Esterase Moderate (NEG) Urine RBC 0 /HPF (0-2) Urine WBC >40 /HPF (0-4) Urine Squamous Epithelial Cells Mod /LPF Urine Transitional Epithelial Cells Few /LPF Urine Renal Epithelial Cells Few /LPF Urine Bacteria 0 /HPF (0-FEW) Urine Hyaline Casts Many /HPF Urine Mucus Marked /LPF White Blood Count 7.2 x10^3/uL (4.0-11.0) 8.7 x10^3/uL (4.0-11.0) Red Blood Count 3.57 x10^6/uL (3.50-5.40) 3.31 x10^6/uL (3.50-5.40) Hemoglobin 11.1 g/dL (12.0-15.5) 10.2 g/dL (12.0-15.5) Hematocrit 31.5 % (36.0-47.0) 29.2 % (36.0-47.0) Mean Corpuscular Volume 88 fL (79-100) 88 fL (79-100) Mean Corpuscular Hemoglobin 31 pg (25-35) 31 pg (25-35) Mean Corpuscular Hemoglobin Concent 35 g/dL (31-37) 35 g/dL (31-37) Red Cell Distribution Width 12.8 % (11.5-14.5) 12.5 % (11.5-14.5) Platelet Count 388 x10^3/uL (140-400) 335 x10^3/uL (140-400) Neutrophils (%) (Auto) 65 % (31-73) 65 % (31-73) Lymphocytes (%) (Auto) 25 % (24-48) 24 % (24-48) Monocytes (%) (Auto) 9 % (0-9) 9 % (0-9) Eosinophils (%) (Auto) 1 % (0-3) 1 % (0-3) Basophils (%) (Auto) 1 % (0-3) 1 % (0-3) Neutrophils # (Auto) 4.7 x10^3/uL (1.8-7.7) 5.7 x10^3/uL (1.8-7.7) Lymphocytes # (Auto) 1.8 x10^3/uL (1.0-4.8) 2.1 x10^3/uL (1.0-4.8) Monocytes # (Auto) 0.6 x10^3/uL (0.0-1.1) 0.8 x10^3/uL (0.0-1.1) Eosinophils # (Auto) 0.1 x10^3/uL (0.0-0.7) 0.1 x10^3/uL (0.0-0.7) Basophils # (Auto) 0.1 x10^3/uL (0.0-0.2) 0.0 x10^3/uL (0.0-0.2) Prothrombin Time 13.6 SEC (11.7-14.0) Prothromb Time International Ratio 1.1 (0.8-1.1) Sodium Level 135 mmol/L (136-145) 136 mmol/L (136-145) Potassium Level 3.8 mmol/L (3.5-5.1) 3.7 mmol/L (3.5-5.1) Chloride Level 97 mmol/L (98-107) 101 mmol/L (98-107) Carbon Dioxide Level 29 mmol/L (21-32) 26 mmol/L (21-32) Anion Gap 9 (6-14) 9 (6-14) Blood Urea Nitrogen 28 mg/dL (7-20) 22 mg/dL (7-20) Creatinine 1.1 mg/dL (0.6-1.0) 0.8 mg/dL (0.6-1.0) Estimated GFR (Cockcroft-Gault) 47.8 69.0 BUN/Creatinine Ratio 25 (6-20) Glucose Level 94 mg/dL (70-99) 88 mg/dL (70-99) Calcium Level 9.2 mg/dL (8.5-10.1) 8.2 mg/dL (8.5-10.1) Total Bilirubin 0.4 mg/dL (0.2-1.0) Aspartate Amino Transf (AST/SGOT) 18 U/L (15-37) Alanine Aminotransferase (ALT/SGPT) 21 U/L (14-59) Alkaline Phosphatase 109 U/L (46-116) Troponin I Quantitative < 0.017 ng/mL (0.000-0.055) AK-His-D-Type Natriuretic Peptide 272 pg/mL (0-449) Total Protein 7.7 g/dL (6.4-8.2) Albumin 3.4 g/dL (3.4-5.0) Albumin/Globulin Ratio 0.8 (1.0-1.7) Laboratory Tests Test 06/02/20 03:07 White Blood Count 8.7 x10^3/uL (4.0-11.0) Red Blood Count 3.31 x10^6/uL (3.50-5.40) Hemoglobin 10.2 g/dL (12.0-15.5) Hematocrit 29.2 % (36.0-47.0) Mean Corpuscular Volume 88 fL (79-100) Mean Corpuscular Hemoglobin 31 pg (25-35) Mean Corpuscular Hemoglobin Concent 35 g/dL (31-37) Red Cell Distribution Width 12.5 % (11.5-14.5) Platelet Count 335 x10^3/uL (140-400) Neutrophils (%) (Auto) 65 % (31-73) Lymphocytes (%) (Auto) 24 % (24-48) Monocytes (%) (Auto) 9 % (0-9) Eosinophils (%) (Auto) 1 % (0-3) Basophils (%) (Auto) 1 % (0-3) Neutrophils # (Auto) 5.7 x10^3/uL (1.8-7.7) Lymphocytes # (Auto) 2.1 x10^3/uL (1.0-4.8) Monocytes # (Auto) 0.8 x10^3/uL (0.0-1.1) Eosinophils # (Auto) 0.1 x10^3/uL (0.0-0.7) Basophils # (Auto) 0.0 x10^3/uL (0.0-0.2) Sodium Level 136 mmol/L (136-145) Potassium Level 3.7 mmol/L (3.5-5.1) Chloride Level 101 mmol/L (98-107) Carbon Dioxide Level 26 mmol/L (21-32) Anion Gap 9 (6-14) Blood Urea Nitrogen 22 mg/dL (7-20) Creatinine 0.8 mg/dL (0.6-1.0) Estimated GFR (Cockcroft-Gault) 69.0 Glucose Level 88 mg/dL (70-99) Calcium Level 8.2 mg/dL (8.5-10.1) Microbiology 05/31/20 Urine Culture - Final, Complete Medications Current Medications Ceftriaxone Sodium (Rocephin) 1 gm 1X ONCE IVP Last administered on 05/31/20at 18:07; Start 05/31/20 at 18:00; Stop 05/31/20 at 18:01; Status DC Ondansetron HCl (Zofran) 4 mg PRN Q8HRS PRN IV NAUSEA/VOMITING; Start 05/31/20 at 19:30; Stop 06/01/20 at 19:29; Status DC Ceftriaxone Sodium (Rocephin) 1 gm Q24H IVP Last administered on 06/02/20at 08:38; Start 06/01/20 at 08:00 Lactobacillus Rhamnosus (Culturelle) 1 cap BID PO Last administered on 06/02/20at 08:38; Start 06/01/20 at 21:00 Aspirin (Aspirin Chewable) 81 mg DAILYWBKFT PO Last administered on 06/02/20at 08:38; Start 06/01/20 at 15:30 Acetaminophen (Tylenol) 650 mg PRN Q6HRS PRN PO PAIN Last administered on 06/02/20at 03:15; Start 06/02/20 at 03:15 Active Scripts Active Reported Valsartan-Hctz 320-12.5 Mg Tab (Valsartan/Hydrochlorothiazide) 1 Each Tablet 1 Tab PO DAILY Ibuprofen 600 Mg Tablet 600 Mg PO PRN TID PRN Alendronate Sodium 35 Mg Tablet 35 Mg PO WEEKLY Amlodipine Besylate 10 Mg Tablet 10 Mg PO DAILY Donepezil Hcl 10 Mg Tablet 10 Mg PO DAILY Latanoprost 2.5 Ml Drops 1 Drop OU HS Vitals/I & O Vital Sign - Last 24 Hours 06/01/20 06/01/20 06/01/20 06/01/20 15:00 18:38 20:00 22:39 Temp 98.5 98.4 98.6 98.5 98.4 98.6 Pulse 74 74 68 Resp 16 16 16 B/P (MAP) 126/57 (80) 118/45 (69) 119/50 (73) Pulse Ox 94 99 100 O2 Delivery Room Air Room Air Room Air Room Air 06/02/20 06/02/20 06/02/20 06/02/20 03:00 07:00 08:00 10:55 Temp 98.0 97.4 97.7 98.0 97.4 97.7 Pulse 80 64 67 B/P (MAP) 133/73 (93) 107/43 (64) 145/55 (85) Pulse Ox 99 96 97 O2 Delivery Room Air Room Air Room Air Room Air Intake and Output 06/01/20 06/01/20 06/02/20 15:00 23:00 07:00 Intake Total 240 ml 400 ml 300 ml Output Total 1 ml Balance 240 ml 399 ml 300 ml Justicifation of Admission Dx: Justifications for Admission: Justification of Admission Dx: Yes DEDRICK TREVINO MD Jun 02, 2020 11:34
--- NOTE | 2020-06-02 12:04 | NUR ---
SS following for discharge planning. SS reviewed pt chart and discussed with pt RN. Pt is from home with spouse and is currently on room air. Pt on IV Rocephin. Per RN, possible discharge to home today. SS will continue to follow for discharge planning.
[2020-06-02] MEDS ORDERED: ASPI-630 PO (12:54)
[2020-06-02] MEDS ORDERED: AMOX1TAB61 PO (13:02)
--- NOTE | 2020-06-02 14:51 | NUR ---
Discharge Note: EDGAR JAEGER Discharge instructions and discharge home medications reviewed with Patient and a copy given. All questions have been answered and understanding verbalized. Pt DC'd from second floor assisted by family memeber to 6th floor to visit .
[2020-06-02] MEDS ORDERED: CEFDINIR 300 MG CAPSULE PO SCH (21:00)
--- NOTE | 2020-06-03 04:43 | EKG ---
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
--- NOTE | 2020-06-03 08:48 | DS ---
DATE OF DISCHARGE: 06/02/2020 ADMISSION DIAGNOSES: Encephalopathy, urinary tract infection, sepsis, history of dementia and stroke. DISCHARGE DIAGNOSES: Resolving encephalopathy, resolving urinary tract infection, and resolving sepsis. CONSULTATIONS: Neurology. PROCEDURES: None. HOSPITAL COURSE: The patient is a pleasant elderly female who presented with mental status change. She seemed to have metabolic encephalopathy and had a UTI. We suspect she was septic. We admitted her, gave her IV antibiotics and fluids, did physical therapy and occupational therapy. We consulted Neurology. Over the next few days, she has returned to her baseline. Yesterday, I saw and examined. Heart tones were normal. Lungs were clear. She was following some commands. We discharged on p.o. antibiotics. DISPOSITION: Home. ACTIVITY: As tolerated. DIET: Low sodium. MEDICATIONS: Please see the MRAD. TOTAL TIME: 34 minutes. INDIRA QUINN DO DR: JOSE E/clarence JOB#: [id number] / [id number]
== END 2020-06-02 14:30 | disposition home or self-care (01) | DRG 871 ==
LOC: ER 16:36 → ED HOLD 20:19 → 2 NORTH 21:45
PROVIDERS: ADMIT Internal Medicine; ATTEND Internal Medicine
DX: A41.9 Sepsis, unspecified organism (principal); G93.41 Metabolic encephalopathy; N39.0 Urinary tract infection, site not specified; F03.90 Unspecified dementia, unspecified severity, without behavioral disturbance, psychotic disturbance, mood disturbance, and anxiety; I10 Essential (primary) hypertension; Z86.73 Personal history of transient ischemic attack (TIA), and cerebral infarction without residual deficits; Z90.710 Acquired absence of both cervix and uterus; Z96.649 Presence of unspecified artificial hip joint; Z79.899 Other long term (current) drug therapy
CPT/HCPCS: 36415; 70450; 70551; 71045; 80048; 80053; 81001; 83880; 84484; 85025; 85610; 87086; 93005; 96374; J0696; 99285-25; G0378

== ENCOUNTER 2021-02-12 11:10 | Emergency (ER) | payer MEDICARE ==
[~2021-02-12] VITALS: Ht 157.5 cm; Wt 82.7 kg
[~2021-02-12 11:10] MED LIST changes: +ALEN35TA45 PO; +AMLO-187 PO; +AMOX1TAB61 PO; +ASPI-630 PO; +DONE10TA7 PO; +IBUP-985 PO; +LATA2.5D3 OU; -REGADENOSON 0.4 MG/5 ML DISP.SYRIN. IV ONE; +VALS1TAB PO
--- NOTE | 2021-02-12 11:21 | PHYS DOC ---
Past Medical History Past Medical History: CVA, Hypertension Past Surgical History: Hip Replacement, Hysterectomy, Lumbar Laminectomy Smoking Status: Never Smoker Alcohol Use: None Drug Use: None General Adult EDM: Chief Complaint: WEAKNESS/GENERALIZED HPI: HPI: This is a pleasant 80-year-old female who reports generally "feeling off". She denies slurred speech aphasia difficulty swallowing facial drooping or focal weakness or numbness of an arm or leg. She denies having any pain at this time. She is unable to clarify any more history. She just feels different is what she says. This all started this morning. She denies any nausea vomiting fevers chills. Review of systems negative for chest pain shortness of breath abdominal pain vomiting diaphoresis fevers chills vision changes. All other review of systems negative ED course: 80-year-old female presenting generally feeling off. On arrival the patient is afebrile with a normal heart rate. Breathing comfortably. Blood pressure 146/62. Satting well on room air. Patient's physical exam is unremarkable. Patient is able to ambulate in the emergency department without difficulty. No history of head trauma. She does not have a headache. She has clear speech without pronator drift. Blood work unremarkable proBNP was just above the reference range of normal. Troponin within normal limits. urine analysis not suggestive of acute infection. On reexamination the patient continues to be well-appearing with a normal neurologic exam. We will discharge patient to follow-up with PCP tomorrow. She is to return for any new symptoms or any concerns. Review of Systems: Review of Systems: Constitutional: Denies fever or chills. [] Eyes: Denies change in visual acuity. [] HENT: Denies nasal congestion or sore throat. [] Respiratory: Denies cough or shortness of breath. [] Cardiovascular: Denies chest pain or edema. [] GI: Denies abdominal pain, nausea, vomiting, bloody stools or diarrhea. [] : Denies dysuria. [] Musculoskeletal: Denies back pain or joint pain. [] Integument: Denies rash. [] Neurologic: Denies headache, focal weakness or sensory changes. [] Endocrine: Denies polyuria or polydipsia. [] Lymphatic: Denies swollen glands. [] Psychiatric: Denies depression or anxiety. [] Heart Score: C/O Chest Pain: No Risk Factors: Risk Factors: DM, Current or recent (<one month) smoker, HTN, HLP, family history of CAD, obesity. Risk Scores: Score 0 - 3: 2.5% MACE over next 6 weeks - Discharge Home Score 4 - 6: 20.3% MACE over next 6 weeks - Admit for Clinical Observation Score 7 - 10: 72.7% MACE over next 6 weeks - Early Invasive Strategies Allergies: Allergies: Allergies Coded Allergies Type Severity Reaction Last Updated Verified No Known Drug Allergies 09/09/15 No Physical Exam: PE: Constitutional: Well developed, well nourished, no acute distress, non-toxic appearance. [] HENT: Normocephalic, atraumatic, bilateral external ears normal, oropharynx mois t, no oral exudates, nose normal. [] Eyes: PERRLA, EOMI, conjunctiva normal, no discharge. [] Neck: Normal range of motion, no tenderness, supple, no stridor. [] Cardiovascular:Heart rate regular rhythm, no murmur [] Lungs & Thorax: Bilateral breath sounds clear to auscultation [] Abdomen: Bowel sounds normal, soft, no tenderness, no masses, no pulsatile masses. [] Skin: Warm, dry, no erythema, no rash. [] Back: No tenderness, no CVA tenderness. [] Extremities: No tenderness, no cyanosis, no clubbing, ROM intact, no edema. [] Neurologic: Mental status: Awake oriented and alert x3 Cranial nerves: Extraocular movements intact, eyebrows shorty bilaterally, smile symmetric, uvula elevation nl, shoulder shrug intact bilaterally, tongue protrusion normal Clear speech. Normal [id number]. Sensation: equal and normal in all extremities Strength: 5/5 in upper and lower extremities bilaterally Psychologic: Affect normal, judgement normal, mood normal. [] EKG: EKG: [] Radiology/Procedures: Radiology/Procedures: [] Course & Med Decision Making: Course & Med Decision Making Pertinent Labs and Imaging studies reviewed. (See chart for details) [] Dragon Disclaimer: Dragon Disclaimer: This electronic medical record was generated, in whole or in part, using a voice recognition dictation system. Departure Departure Impression: Primary Impression: Encounter for medical screening examination Disposition: 01 DC HOME SELF CARE/HOMELESS Condition: STABLE Referrals: KRISTI TODD MD (PCP) Patient Instructions: Medical Screening Exam Additional Instructions: EMERGENCY DEPARTMENT GENERAL DISCHARGE INSTRUCTIONS Follow-up with your primary physician in 1 to 2 days. Return to the emergency department if you have any new or concerning findings. Thank you for coming to [facility] Emergency Department (ED) today and trusting us with you care. We trust that you had a positive experience in our Emergency Department. If you wish to speak to the department management, you may call the Director at [phone]. Follow up is important in emergency/acute care visits. This condition should be evaluated by your primary care physician and any necessary consulting services for continued management within a few days (1-2) after discharge. Return to the emergency department if you have any new or concerning symptoms including but not limited to fever, chills, nausea, vomiting, intractable pain, any new rashes, chest pain, shortness of breath, uncontrolled bleeding, difficulty breathing, and/or vision loss. 1. Do you have a private Doctor? If you do not have a private doctor, please ask for a resource list of physicians or clinics that may be able to assist you with follow up care. 2. If a lab test or culture has been done and does not come back immediately, your results will be reviewed and you will be notified if you need a change in treatment. 3. Your care today has been supervised by a physician who is specially trained in emergency care. Many problems require more than one evaluation for a com plete diagnosis and treatment. We recommend that you schedule your follow up appointment as recommended to ensure complete treatment of you illness or injury. If you are unable to obtain follow up care and continue to have a problem, or if your condition worsens, we recommend that you return to the ED. 4. We are not able to safely determine your condition over the phone nor are we able to give sound medical advice over the phone. For these safety reasons, if you call for medical advice we will ask you to come to the ED for further evaluation. IF YOUR SYMPTOMS WORSEN OR NEW SYMPTOMS DEVELOP, OR YOU HAVE CONCERNS ABOUT YOUR CONDITION; OR IF YOUR CONDITION WORSENS WHILE YOU ARE WAITING FOR YOUR FOLLOW UP APPOINTMENT; EITHER CONTACT YOUR PRIMARY CARE DOCTOR, THE PHYSICIAN WHOSE NAME AND NUMBER YOU WERE GIVEN, OR RETURN TO THE ED IMMEDIATELY. KRISTA DOLL MD Feb 12, 2021 11:21
[2021-02-12 12:03] LABS: BASO # 0.1 x10^3/uL (0.0-0.2); BASO % 1 % (0-3); EOS % 1 % (0-3); HEMATOCRIT 33.9 % (36.0-47.0); HEMOGLOBIN 11.7 g/dL (12.0-15.5); LYMPH # 1.3 x10^3/uL (1.0-4.8); LYMPH % 23 % (24-48); MEAN CORPUSCULAR HEMOGLOBIN 31 pg (25-35); MEAN CORPUSCULAR HGB CONC 35 g/dL (31-37); MEAN CORPUSCULAR VOLUME 89 fL (79-100); MONO # 0.4 x10^3/uL (0.0-1.1); MONO % 7 % (0-9); NEUT # 3.9 x10^3/uL (1.8-7.7); NEUT % 69 % (31-73); PLATELET COUNT 346 x10^3/uL (140-400); RED BLOOD COUNT 3.83 x10^6/uL (3.50-5.40); RED CELL DISTRIBUTION WIDTH 12.7 % (11.5-14.5); WHITE BLOOD COUNT 5.7 x10^3/uL (4.0-11.0)
[2021-02-12 12:08] LABS: CREATININE 0.9 mg/dL (0.6-1.0); GFR 60.1; POTASSIUM 4.1 mmol/L (3.5-5.1)
[2021-02-12 12:14] LABS: ALBUMIN 3.7 g/dL (3.4-5.0); DIRECT BILIRUBIN 0.2 mg/dL (0.0-0.2); TOTAL BILIRUBIN 0.5 mg/dL (0.2-1.0); TOTAL PROTEIN 7.4 g/dL (6.4-8.2)
[2021-02-12 12:51] LABS: BILIRUBIN,URINE NEGATIVE (NEG); CLARITY,URINE CLEAR; COLOR,URINE YELLOW; NITRITE,URINE NEGATIVE (NEG); PH,URINE 7.5 (<5.0-8.0); PROTEIN,URINE NEGATIVE (NEG-TRACE)
[2021-02-12 13:18] LABS: BACTERIA,URINE 0 /HPF (0-FEW); HYALINE CASTS, URINE MODERATE /HPF; RBC,URINE 0 /HPF (0-2); WBC,URINE OCC /HPF (0-4)
--- NOTE | 2021-02-12 13:31 | EKG ---
[facility] [address] [place] [address] Test Date: 2021-02-12 Test Time: 12:32:28 Pat Name: EDGAR JAEGER Department: Room: Gender: F Director [employer]: : 1940 Requested By: KRISTA DOLL Order Number: [id number] Reading MD: Measurements Intervals [place] Rate: 61 P: 48 MT: 180 QRS: 7 QRSD: 72 T: 27 QT: 404 QTc: 408 Interpretive Statements SINUS RHYTHM LOW LIMB LEAD VOLTAGE NO SPECIFIC ECG ABNORMALITIES RI6.02 No previous ECG available for comparison
[2021-02-12 14:00] VITALS: BP 117/55
== END 2021-02-12 14:32 | disposition home or self-care (01) ==
LOC: ER 11:10
DX: R53.1 Weakness (principal); I10 Essential (primary) hypertension; Z86.73 Personal history of transient ischemic attack (TIA), and cerebral infarction without residual deficits; Z90.710 Acquired absence of both cervix and uterus
CPT/HCPCS: 36415; 80048; 80076; 81001; 83690; 83880; 84484; 85025; 93005; 99284

== ENCOUNTER 2021-05-26 13:55 | Emergency (ER) | payer MEDICARE ==
[2021-05-26 15:35] LABS: BILIRUBIN,URINE NEGATIVE (NEG); CLARITY,URINE CLEAR; COLOR,URINE YELLOW; NITRITE,URINE NEGATIVE (NEG); PH,URINE 5.5 (<5.0-8.0); PROTEIN,URINE NEGATIVE (NEG-TRACE); UROBILINOGEN,URINE 0.2 mg/dL (0.2 mg/dL)
--- NOTE | 2021-05-26 15:45 | PHYS DOC ---
Past Medical History Past Medical History: CVA, Hypertension Past Surgical History: Hip Replacement, Hysterectomy, Lumbar Laminectomy Smoking Status: Never Smoker Alcohol Use: None Drug Use: None General Adult EDM: Chief Complaint: VAGINAL PROBLEM HPI: HPI: Patient is a 80 year old female who presents with 1 day of burning with urination. Patient states that she is worried if she is got a yeast infection or something. She states that she has been slightly nauseated but having no abdominal pain. She states she does not have any vaginal itching. She denies any kind of vaginal discharge or smell. Patient rates her discomfort at a 5 out of 10. She has a history of CVA, hypertension, hip replacement, hysterectomy, lumbar laminectomy Review of Systems: Review of Systems: Constitutional: Denies fever or chills. [] Eyes: Denies change in visual acuity. [] HENT: Denies nasal congestion or sore throat. [] Respiratory: Denies cough or shortness of breath. [] Cardiovascular: Denies chest pain or edema. [] GI: Denies abdominal pain, +nausea, denies vomiting, bloody stools or diarrhea. [] : Denies dysuria. +Burning with urination, +vaginal burning [] Musculoskeletal: Denies back pain or joint pain. [] Integument: Denies rash. [] Neurologic: Denies headache, focal weakness or sensory changes. [] Endocrine: Denies polyuria or polydipsia. [] Lymphatic: Denies swollen glands. [] Psychiatric: Denies depression or anxiety. [] Heart Score: C/O Chest Pain: No Risk Factors: Risk Factors: DM, Current or recent (<one month) smoker, HTN, HLP, family history of CAD, obesity. Risk Scores: Score 0 - 3: 2.5% MACE over next 6 weeks - Discharge Home Score 4 - 6: 20.3% MACE over next 6 weeks - Admit for Clinical Observation Score 7 - 10: 72.7% MACE over next 6 weeks - Early Invasive Strategies Allergies: Allergies: Allergies Coded Allergies Type Severity Reaction Last Updated Verified No Known Drug Allergies 09/09/15 No Physical Exam: PE: Constitutional: Well developed, well nourished, no acute distress, non-toxic appearance. [] HENT: Normocephalic, atraumatic, bilateral external ears normal, oropharynx moist, no oral exudates, nose normal. [] Eyes: PERRLA, EOMI, conjunctiva normal, no discharge. [] Neck: Normal range of motion, no tenderness, supple, no stridor. [] Cardiovascular:Heart rate regular rhythm, no murmur [] Lungs & Thorax: Bilateral breath sounds clear to auscultation [] Abdomen: Bowel sounds normal, soft, no tenderness, no masses, no pulsatile masses. [] Skin: Warm, dry, no erythema, no rash. Vaginal redness [] Back: No tenderness, no CVA tenderness. [] Extremities: No tenderness, no cyanosis, no clubbing, ROM intact, no edema. [] Neurologic: Alert and oriented X 3, normal motor function, normal sensory function, no focal deficits noted. [] Psychologic: Affect normal, judgement normal, mood normal. [] EKG: EKG: [] Radiology/Procedures: Radiology/Procedures: [] Course & Med Decision Making: Course & Med Decision Making Pertinent Labs and Imaging studies reviewed. (See chart for details) See HPI. Alert and oriented x4. Ambulatory with steady gait. Speaks in full clear sentences. Abdomen is soft and nontender. Skin pink warm and dry. Wet prep does not show any yeast. Patient urine shows some infection. Pelvic Exam: Webfocus Developer present Abdomen: Nontender External Genitalia: Normal Skin, slight redness or irritation Speculum: Normal vaginal mucosa, normal cervical discharge Bimanual: No adnexal masses or tenderness, No CMT [] Dragon Disclaimer: Dragon Disclaimer: This electronic medical record was generated, in whole or in part, using a voice recognition dictation system. Departure Departure Impression: Primary Impression: UTI (urinary tract infection) Qualified Codes: N39.0 - Urinary tract infection, site not specified Additional Impression: Vaginitis Disposition: HOME / SELF CARE / HOMELESS Condition: STABLE Referrals: KRISTI TODD MD (PCP) Patient Instructions: Urinary Tract Infection Additional Instructions: Follow up with primary care provider. Drink plenty of fluids. Begin Antibiotic tomorrow since you have received first dose here. Scripts Clotrimazole (CLOTRIMAZOLE) 15 Gm Cream..g. 1 DAJA TP BID for 5 Days, #30 GM Prov: GABINO MANRIQUE BILLING ADJUDICATOR 05/26/21 Nitrofurantoin Monohyd/M-Cryst (MACROBID 100 MG CAPSULE) 100 Mg Capsule 1 CAP PO BID for 7 Days, #14 CAP 0 Refills Prov: GABINO MANRIQUE APRN 05/26/21 GABINO MANRIQUE APRN May 26, 2021 15:45
[2021-05-26 15:51] LABS: HYALINE CASTS, URINE MANY /HPF
[2021-05-26 15:52] LABS: BACTERIA,URINE MODERATE /HPF (0-FEW); RBC,URINE 0 /HPF (0-2)
[2021-05-26] MEDS ORDERED: NITROFURANTOIN MONOHYD/M-CRYST 100 MG CAPSULE. PO ONE (16:00)
[2021-05-26] MEDS ORDERED: NITR100C62 PO (16:08)
[2021-05-26] MEDS ORDERED: CLOT15CR23 TP (16:08)
[2021-05-26 17:00] VITALS: BP 148/65
[2021-05-28 01:15] LABS: GC PROBE Negative (Negative)
== END 2021-05-26 17:10 | disposition home or self-care (01) ==
LOC: ER 13:55
DX: N39.0 Urinary tract infection, site not specified (principal); N76.0 Acute vaginitis; I10 Essential (primary) hypertension; Z86.73 Personal history of transient ischemic attack (TIA), and cerebral infarction without residual deficits; Z90.710 Acquired absence of both cervix and uterus
CPT/HCPCS: 81001; 87086; 87491; 87591; 99284; Q0111

== ENCOUNTER → 2021-10-27 | Outpatient (CLI) | payer MEDICARE ==
[~2021-10-27] MED LIST changes: -ALEN35TA45 PO; +ALEN35TA47 PO; +CLOT15CR23 TP; +NITR100C62 PO
--- NOTE | 2021-10-27 17:44 | CARD ---
MR#: [id number] Date of Study: 10/27/2021 Ordering Physician: DALLAS GONZALEZ, Referring Physician: DALLAS GONZALEZ Tech: Tamica Borjas [facility] APPROVED REPORT EXAM: Two-dimensional and M-mode echocardiogram with Doppler and color Doppler. Other Information Quality : AverageHR: 67bpm Rhythm : NSR INDICATION Murmur RISK FACTORS Hypertension Obesity Hyperlipidemia 2D DIMENSIONS RVDd3.3 (2.9-3.5cm)Left Atrium(2D)3.9 (1.6-4.0cm) IVSd0.9 (0.7-1.1cm)Aortic Root(2D)3.2 (2.0-3.7cm) LVDd4.3 (3.9-5.9cm)LVOT Diameter1.8 (1.8-2.4cm) PWd0.9 (0.7-1.1cm)LVDs2.7 (2.5-4.0cm) FS (%) 36.8 %SV54.3 ml LVEF(%)66.9 (>50%) Aortic Valve AoV Peak Zurdo.221.7cm/sAoV VTI55.6cm AO Peak GR.19.7mmHgLVOT Peak Zurdo.123.9cm/s AO Mean GR.11mmHgAVA (VMAX)1.40cm2 AI P 1/2 [id number] Pulmonary Valve PV Peak Jyxjfgfx05.9cm/s Tricuspid Valve TR P. Wqkigqro557og/sTR Peak Gr.29mmHg LEFT VENTRICLE The left ventricle is normal size. There is normal left ventricular wall thickness. The left ventricu lar systolic function is normal. Estimated ejection fraction 55-60%. There is normal LV segmental wa ll motion. Transmitral Doppler flow pattern is Grade I-abnormal relaxation pattern. RIGHT VENTRICLE The right ventricle is normal size. There is normal right ventricular wall thickness. The right ventr icular systolic function is normal. ATRIA The left atrium size is normal. The right atrium size is normal. The interatrial septum is intact wit h no evidence for an atrial septal defect or patent foramen ovale as noted on 2-D or Doppler imaging. AORTIC VALVE The aortic valve is calcified and displays decreased opening. Doppler and Color Flow revealed mild to moderate aortic regurgitation. There is moderate valvular aortic stenosis. MITRAL VALVE Mitral annular calcification is mild. There is no evidence of mitral valve prolapse. There is no mitr al valve stenosis. Doppler and Color Flow revealed mild mitral regurgitation. TRICUSPID VALVE The tricuspid valve is normal in structure and function. Doppler and Color Flow revealed mild tricusp id regurgitation. Estimated PAP 33 mmHg. There is no tricuspid valve stenosis. PULMONIC VALVE The pulmonary valve is normal in structure and function. Doppler and Color Flow revealed mild pulmoni c valvular regurgitation. GREAT VESSELS The aortic root is normal in size. The ascending aorta is normal in size. The IVC is normal in size a nd collapses >50% with inspiration. PERICARDIAL EFFUSION There is no evidence of significant pericardial effusion. Critical Notification Critical Value: No <Conclusion> The left ventricular systolic function is normal. Estimated ejection fraction 55-60%. There is normal LV segmental wall motion. Mild to moderate aortic regurgitation. Mild mitral regurgitation. Mild tricuspid regurgitation. Estimated PAP 33 mmHg. There is no evidence of significant pericardial effusion. Signed by : Dallas Gonzalez, Electronically Approved : 10/27/2021 17:44:11
== END ==
LOC: ECHO 09:47
PROVIDERS: ATTEND Internal Medicine Cardiovascular Disease
DX: I08.8 Other rheumatic multiple valve diseases (principal); R01.1 Cardiac murmur, unspecified; R06.09 Other forms of dyspnea
CPT/HCPCS: 93306